=== PATIENT | female | born 1990 | race Caucasian/White ===

== ENCOUNTER 2024-06-21 12:30 | Outpatient (AMB) | payer OTHER, SELFPAY ==
--- NOTE | 2024-06-21 12:32 | MHC.OFFVIS ---
Vital Signs 06/21/24 12:38 Height 5 ft 1.46 in Weight 169 lb 5.04 oz BMI 31.5 BP 130/80 Blood Pressure Location Lt brachial Position Sitting Pulse 78 Pulse Source Pulse Oximeter Pulse Oximetry (%) 98 Oxygen Delivery Method Room Air Intake Visit Reasons: lupus Intake Note: Pt is here today for a follow up for lupus Accompanied by: Self / Same As Patient Allergies No Known Allergies Allergy (Verified 06/21/24 12:39) Medication List - Last Reconciled 06/21/24 by Vadim Serrano MD acetaminophen (Tylenol Extra Strength) 500 mg PO Q6H PRN albuterol sulfate 90 mcg/actuation 2 puffs inhalation Q6H PRN clindamycin phos-skin clnsr 19 1 % apply both twice daily: use CLEANSER; rinse, then apply CLINDAMYCIN to affected area(s) as directed topical ferrous sulfate mg PO fluticasone propionate 110 mcg/actuation 1 puff inhalation BID folic acid 1 mg PO DAILY gabapentin 300 mg PO BID hydroxychloroquine 200 mg PO DAILY lamotrigine 200 mg PO DAILY methotrexate sodium 20 mg PO QWEEK red beet mg PO HPI HPI lupus: Details: SHe received prednisone course 3 weeks from PCP, which relieved pain. Increase joint pain and stiffness since being off of DMARD therapy. Raynauds is active daily. She is sleeping more due to joint pain. +flare +Pleurisy Increase frequency. Denies dysuria. +chills and hotflashes. PFS Medical History (Updated 06/21/24 @ 13:13 by Vadim Serrano MD) Hidradenitis suppurativa Rheumatoid arthritis Depression IBS (irritable bowel syndrome) Asthma Lupus (systemic lupus erythematosus) Raynaud's syndrome Fibromyalgia Arthralgia of multiple sites Hand joint pain Surgical History H/O tubal ligation Hx of cholecystectomy Review of Systems Const All systems reviewed & are unremarkable except as noted in HPI and below Physical Exam Vital Signs: Last Vital Signs Pulse 78 06/21/24 12:38 BP 130/80 06/21/24 12:38 Pulse Ox 98 06/21/24 12:38 Oxygen Delivery Method Room Air 06/21/24 12:38 BMI result Body Mass Index 31.5 Const Other: General: Comfortable CVS: RRR Respiratory: clear to auscultation bilaterally. Good respiratory effort Skin: No lesions seen MSK: Tender bilateral MCPs, DIPJ, wrists, elbows, shoulders, bilateral knees, ankles, MTPs. She has synovitis of right knee. Normal range of motion of upper extremity but with pain. Normal range of motion of lower extremity but with pain. Assessment & Plan Assessment & Plan (1) Lupus (systemic lupus erythematosus): Comment: Relapsed off of hydroxychloroquine and methotrexate. Rheumatology history: Diagnosis of systemic lupus erythematosus manifesting with polyarthritis, malar rash, alopecia and Raynaud's syndrome. Code(s): M32.9 - Systemic lupus erythematosus, unspecified Category: Medical Qualifiers: Systemic lupus erythematosus type: unspecified Systemic lupus erythematosus organ involvement: unspecified Qualified Code(s): M32.9 - Systemic lupus erythematosus, unspecified Plan: Labs for disease and drug monitoring ordered I am requesting baseline eye exam for hydroxychloroquine surveillance eye patient had done in 2022 After lab results are back I will send prescription for hydroxychloroquine 300 mg daily, methotrexate 20 mg once weekly and folic acid 1 mg daily Return to clinic in 3 months (2) Raynaud's syndrome: Comment: Active despite conservative management. She felt improvement in symptoms with prednisone course. Code(s): I73.00 - Raynaud's syndrome without gangrene Category: Medical Qualifiers: Raynaud?s-associated gangrene presence: without gangrene Qualified Code(s): I73.00 - Raynaud's syndrome without gangrene Plan: We discussed conservative management If symptoms do not improve, I will consider starting amlodipine Return to clinic in 3 months or sooner if needed Orders: Orders Complete Blood Count Auto Diff Today Z79.60 - half-way (current) use of unspecified immunomodulators and immunosuppressants Creatinine Today Z79.60 - intermodal truck driver (current) use of unspecified immunomodulators and immunosuppressants IRMA Reflex Titer and Pattern Today I73.00 - Raynaud's syndrome without gangrene, M32.9 - Systemic lupus erythematosus, unspecified Anti DNA DS Antibody Today M32.9 - Systemic lupus erythematosus, unspecified Sm Sm/GEOTHERMAL HEAT PUMP MACHINIST Antibodies Today M32.9 - Systemic lupus erythematosus, unspecified Protein Creatinine Ratio, Ur Today M32.9 - Systemic lupus erythematosus, unspecified Complement C4 Today M32.9 - Systemic lupus erythematosus, unspecified Alanine Aminotransferase Today Z79.60 - half-way (current) use of unspecified immunomodulators and immunosuppressants Aspartate Amino Transferase Today Z79.60 - intermodal truck driver (current) use of unspecified immunomodulators and immunosuppressants Erythrocyte Sedimentation Rate Today Z79.899 - Other residential (current) drug therapy C Reactive Protein Today Z79.899 - Other long term care social worker (current) drug therapy UA w Microscopic Today M32.9 - Systemic lupus erythematosus, unspecified Protein Electrophoresis,Ran Ur Today M32.9 - Systemic lupus erythematosus, unspecified Complement C3 Today M32.9 - Systemic lupus erythematosus, unspecified T Spot TB Today M32.9 - Systemic lupus erythematosus, unspecified Hepatitis B,C Profile Today M32.9 - Systemic lupus erythematosus, unspecified Urine Culture Today M32.9 - Systemic lupus erythematosus, unspecified Medications: New prednisone Take 4 tablets daily 5 days, 3 tablets daily 5 days, 2 tablets daily 5 days, 1 tablet daily 5 days then stop. Take prednisone with food. 5 mg PO DIRECTED 50 tabs 0RF Coding Level of Care Code Est Pt Level 4 (78701) Complex EM visit Add On G2211 Diagnoses Systemic lupus erythematosus, unspecified SLE type, unspecified organ involvement status M32.9 Systemic lupus erythematosus type: unspecified Systemic lupus erythematosus organ involvement: unspecified Raynaud's disease without gangrene I73.00 Raynaud?s-associated gangrene presence: without gangrene
[2024-06-21 12:38] VITALS: BP 130/80; PULSE 78; O2SAT 98; BMI 31.5
--- OUTSIDE RECORDS SUMMARY | 2024-06-21 14:53 | XMS_ITS | Clinical Summary ---
Author Organization [employer] [facility] it Address [address] [place] [address] Care Team Providers Care Robotics Application Engineer Name Role Phone Javier Noland MD Primary Care Provider [phone] Surgical History Surgery Date Site/Laterality Comments SECTION 01/08/09 PROCEDURE: HISTORICAL DELIVERY Family History Medical History Relation Name Comments Hypertension Brother 1 Diabetes Maternal Grandfather Coronary artery disease Paternal Grandfather Other cancer Neg Hx Relation Name Status Comments Brother 1 Brother 2 Maternal Grandfather Paternal Grandfather Social History Tobacco Use Types Packs/Day Years Used Date Smoking Tobacco: Former Alcohol Use Standard Drinks/Week Comments No 0 (1 standard drink = 0.6 oz pur e alcohol) Comments Unknown Sex and Gender Information Value Date Recorded Sex Assigned at Not on file Legal Sex Female 4:33 AM EST Gender Identity Not on file Sexual Orientation Not on file Obstetrics History Plan of Treatment Health Maintenance Due Date Last Done Comments Cervical Cancer Screening: Pap Smear 07/10/2012 DTaP,Tdap,and Td Vaccines (7 - Td or Tdap) 05/16/2022 05/16/2012, 09/07/2007, 05/19/2004, Additional history exists COVID-19 Vaccine ( season) 2023 Influenza Vaccine (#1) 2023 05/16/2012, 2008 HIB Vaccines Completed 11/08/1992 MMR Vaccines Completed 11/14/1997, 10/11/1992 IPV Vaccines Completed 02/15/1998, 11/03, 01/30/1993, Additional history exists Hepatitis B Vaccines Completed 03/06/2005, 01/03/2001, 02/15/1998 Varicella Vaccines Aged Out 09/18/2005 No longer eligible based on patient's age to complete this topic Meningococcal ACWY Vaccine Completed 09/07/2007 HPV Vaccines Completed 06/07/2009, 03/05, 09/07/2007 Hepatitis A Vaccines Aged Out No long er eligible based on patient's age to complete this topic Meningococcal B Vacine Aged Out No lo nger eligible based on patient's age to complete this topic Pneumococcal Vaccine: Pediatrics (0 to 5 Years) and At-Risk Patients (6 to 64 Years) Aged Out No longer eligible based on patient's age to complete this topic RSV Immunization Patients Under 20 months Aged Out No longer eligible based on patient's age to complete this topic Care Teams Robotics Application Engineer Relationship Specialty Start Date End Date Javier Noland MD [address] [place] [address] PCP - General 08/14/14
== END 2024-06-21 13:11 | disposition home or self-care (01) ==
LOC: HO.RHES 12:30
PROVIDERS: Visit Provider Internal Medicine Rheumatology
DX: M32.9 Systemic lupus erythematosus, unspecified (principal); I73.00 Raynaud's syndrome without gangrene
CPT/HCPCS: 99214; G2211

== ENCOUNTER 2024-06-21 12:30 | Outpatient (REF) | payer OTHER, SELFPAY ==
[2024-06-21 18:11] LABS: MANUAL DIFF FLAG NO
[2024-06-21 18:24] LABS: Appearance Urine Clear; Color Urine Yellow; Glucose Urine UA Negative (Negative); Leukocyte Esterase Urine Moderate (2+) (Negative); Nitrite Urine Negative (Negative); PH 7.5 (5.0-9.0); UMIC TRIGGER UA YES; Urine Blood Negative (Negative); Urine Ketones Negative (Negative); Urine Protein Negative (Neg-Trace)
[2024-06-21 18:27] LABS: Basophils Percent Auto 0.5 % (0-2); Eosinophils Absolute Auto 0.1 X10*3/uL (0.0-0.4); Hematocrit 38.8 % (37.0-47.0); Hemoglobin 12.7 g/dl (12.0-16.0); Imm Gran Abs Auto 0.03 X10*3/uL (0.00-0.03); Imm Gran Pct Auto 0.5 % (0.0-0.4); Lymphocytes Absolute Auto 1.6 X10*3/uL (1.2-4.9); Mean Corpuscular HGB Conc 32.7 g/dl (31.0-35.0); Mean Corpuscular Hemoglobin 30.3 pg (27.0-33.0); Mean Corpuscular Volume 92.6 fL (80.0-98.0); Mean Platelet Volume 9.4 fL (9.4-12.3); Monocytes Absolute Auto 0.4 X10*3/uL (0.1-1.2); Monocytes Percent Auto 6.1 % (2-11); Neutrophils Absolute Auto 3.7 x10*3/uL (2.0-8.3); Neutrophils Percent Auto 63.9 % (45-73); Platelet Count 381 X10*3/uL (160-400); Red Blood Count 4.19 X10*6/uL (4.20-5.50); Red Cell Distribution Width 15.8 % (11.0-16.0); White Blood Count 5.7 X10*3/uL (4.8-10.8)
[2024-06-21 18:31] LABS: Bacteria Urine Trace (None Seen); Hyaline Casts Urine 0-2 /LPF (0-2); RBC Urine 0-2 /HPF (0-2)
[2024-06-21 18:38] LABS: Alanine Aminotransferase 16 U/L (0-31); Aspartate Amino Transferase 20 U/L (5-31); C Reactive Protein < 0.10 mg/dL (< or = 0.50); Estimated Glomerular Filt Rate > 60
[2024-06-21 19:05] LABS: Creatinine Urine 117.05 mg/dL; Total Protein Urine Random < 7 mg/dL (<12)
[2024-06-21 19:59] LABS: Erythrocyte Sedimentation Rate 12 MM/HR (0-20)
[2024-06-22 08:23] LABS: HBS Num1 253.64 mIU/mL (0-7.99); HBc Num1 0.13 S/CO (0.00-0.79); HBsAGNum1 0.35 S/CO (0.00-0.99); Hepatitis B Core Antibody Nonreactive (Nonreactive); Hepatitis B Surface Antigen Negative (Negative); ~HepC Num1 0.12 S/CO (0.00-0.79); ~Hepatitis B Surface Antibody REACTIVE (Nonreactive); ~Hepatitis C Antibody Nonreactive (Nonreactive)
[2024-06-22 16:32] LABS: Complement C3 125 mg/dL (83-193)
[2024-06-22 21:18] LABS: Anti DNA DS Antibody <1 IU/mL; SM/Ribonucleoprotein Ab <1.0 NEG AI (<1.0 NEG); Smith Protein <1.0 NEG AI (<1.0 NEG)
[2024-06-23 14:53] LABS: Anti Nuclear Antibody Screen NEGATIVE (NEGATIVE)
[2024-06-24 00:23] LABS: TS Negative Control Passed; TS Panel A 0; TS Panel B 0; TS Positive Control Passed; TSpotTB Negative (Negative)
[2024-06-26 09:59] LABS: PEU-Protein Creat Ratio Rand 0.095 (0.024-0.184); PEU-Rand. Prot/Creat Ratio 95 mg/g creat (24-184); PEU-Random Ur. Gamma Globulin 0 %; PEU-Random Urine A1 Globulin 0 %; PEU-Random Urine A2 Globulin 0 %; PEU-Random Urine Albumin 100 %; PEU-Random Urine Beta Globulin 0 %; PEU-Random Urine Creatinine 116 mg/dL (20-275); PEU-Random Urine Protein 11 mg/dL (5-24)
== END 2024-06-21 12:31 | disposition home or self-care (01) ==
LOC: HO.HKASLDS 12:30
PROVIDERS: Visit Provider Internal Medicine Rheumatology
DX: M32.9 Systemic lupus erythematosus, unspecified (principal); I73.00 Raynaud's syndrome without gangrene; Z79.60 Long term (current) use of unspecified immunomodulators and immunosuppressants; Z79.899 Other long term (current) drug therapy
CPT/HCPCS: 81001; 82565; 82570; 84156; 84166; 84450; 84460; 85025; 85652; 86038; 86140; 86160; 86225; 86235; 86481; 86704; 86706; 86803; 87086; 87340; 99212

== ENCOUNTER 2024-09-21 12:42 | Outpatient (AMB) | payer OTHER, SELFPAY ==
--- NOTE | 2024-09-21 12:44 | A.OFFVIS_ITS ---
Vital Signs 09/21/24 12:51 Height 5 ft 1.46 in Weight 165 lb 4 oz BMI 30.8 BP 112/62 Blood Pressure Location Lt brachial Position Sitting Pulse 63 Pulse Source Pulse Oximeter Pulse Oximetry (%) 99 Oxygen Delivery Method Room Air Intake Visit Reasons: 3 Months Intake Note: Patient presents for 3 months follow up. Allergies No Known Allergies Allergy (Verified 09/21/24 12:47) Medication List - Last Reconciled 09/21/24 by Vadim Serrano MD acetaminophen (Tylenol Extra Strength) 500 mg PO Q6H PRN albuterol sulfate 90 mcg/actuation 2 puffs inhalation Q6H PRN clindamycin phos-skin clnsr 19 1 % apply both twice daily: use CLEANSER; rinse, then apply CLINDAMYCIN to affected area(s) as directed topical ferrous sulfate mg PO fluticasone propionate 110 mcg/actuation 1 puff inhalation BID folic acid 1 mg PO DAILY folic acid 1 mg PO DAILY hydroxychloroquine 300 mg (1.5 x 200 mg) PO DAILY 90 days lamotrigine 200 mg PO DAILY methotrexate sodium 20 mg PO QWEEK methotrexate sodium 20 mg (8 x 2.5 mg) PO QWEEK 12 weeks prednisone 5 mg PO DIRECTED pregabalin 200 mg PO BID red beet mg PO HPI HPI 3 Months: Details: PCP is concerned patient has EDS with hypermobility and POTs. She has improved joint pain since being on HCQ and MTX. COnstant joint pain. Hands and feet are swollen. Neck is warm. Raynauds is active in hands and feet. [facility] Medical History (Updated 09/21/24 @ 13:20 by Vadim Serrano MD) Hidradenitis suppurativa Rheumatoid arthritis Depression IBS (irritable bowel syndrome) Asthma Lupus (systemic lupus erythematosus) Raynaud's syndrome Fibromyalgia Arthralgia of multiple sites Hand joint pain Surgical History H/O tubal ligation Hx of cholecystectomy Social History Household Members: Family Housing: Apartment Alcohol intake: former Patient Tobacco Use Status: Former Tobacco user Years Smoked: 8 Physical Exam Const Other: General: Comfortable CVS: RRR Respiratory: clear to auscultation bilaterally. Good respiratory effort Skin: No lesions seen MSK: no tender joints. No synovitis. Normal range of motion of upper extremity but with pain. Normal range of motion of lower extremity but with pain. beighton score: ?Passive dorsiflexion and hyperextension of the fifth MCP joint beyond 90? 1 1 2. Passive apposition of the thumb to the flexor aspect of t he forearm 1 1 3. Passive hyperextension of the elbow b eyond 10? 0 0 4. Passive hyperextension of the knee beyond 10? 1 1 5. Active forward flexion of the trunk w ith the knees fully extended so that the palms of the hands rest flat on the floor 1 1 TOTAL 8 Assessment & Plan Assessment & Plan (1) Lupus (systemic lupus erythematosus): Comment: Relapsed off of hydroxychloroquine and methotrexate. Inflammatory arthritis is controlled since being back on treatment. Rheumatology history: Diagnosis of systemic lupus erythematosus manifesting with polyarthritis, malar rash, alopecia and Raynaud's syndrome. Raynaud's syndrome onset age 20s. Relapsed off of hydroxychloroquine and methotrexate 2024 with inflammatory arthritis. Code(s): M32.9 - Systemic lupus erythematosus, unspecified Category: Medical Qualifiers: Systemic lupus erythematosus type: unspecified Systemic lupus ruba thematosus organ involvement: unspecified Qualified Code(s): M32.9 - Systemic lupus erythematosus, unspecified Plan: Labs for disease and drug monitoring ordered I am requesting baseline eye exam for hydroxychloroquine surveillance eye patient had done in 2022 x2 request Continue hydroxychloroquine 300 mg daily, methotrexate 20 mg once weekly and folic acid 1 mg daily Return to clinic in 3 months (2) Raynaud's syndrome: Comment: Active despite conservative management. Normotensive. Code(s): I73.00 - Raynaud's syndrome without gangrene Category: Medical Qualifiers: Raynaud?s-associated gangrene presence: without gangrene Qualified Code(s): I73.00 - Raynaud's syndrome without gangrene Plan: Start amlodipine 2.5 mg daily Nurse visit in 1 month for BP check Return to clinic in 3 months or sooner if needed (3) Benign hypermobility syndrome: Comment: Discussed new diagnosis and management. She had mitral valve regurgitation in setting of cardiomyopathy after delivery of her daughter. She does not have any other clinical signs or symptoms suggestive of more serious form of EDS. At this time there is no genetic testing for benign hypermobility syndrome. Physical rehabilitation is haq for strengthening joints and improving arthralgias. Code(s): M35.7 - Hypermobility syndrome Category: Medical Plan: PT ordered for upper extremity and lower extremity strengthening Okay to use Tylenol or NSAIDs prn joint pain Orders: Orders Complete Blood Count Man Dif Today M32.9 - Systemic lupus erythematosus, unspecified Erythrocyte Sedimentation Rate Today M32.9 - Systemic lupus erythematosus, unspecified Anti DNA DS Antibody Today M32.9 - Systemic lupus erythematosus, unspecified Alanine Aminotransferase Today M32.9 - Systemic lupus erythematosus, unspecified Aspartate Amino Transferase Today M32.9 - Systemic lupus erythematosus, unspecified Creatinine Today M32.9 - Systemic lupus erythematosus, unspecified C Reactive Protein Today M32.9 - Systemic lupus erythematosus, unspecified UA w Microscopic Today M32.9 - Systemic lupus erythematosus, unspecified Protein Creatinine Ratio, Ur Today M32.9 - Systemic lupus erythematosus, unspecified Complement C4 Today M32.9 - Systemic lupus erythematosus, unspecified Complement C3 Today M32.9 - Systemic lupus erythematosus, unspecified PT Evaluation and Treatment Today M35.7 - Hypermobility syndrome Medications: Refilled methotrexate sodium 20 mg (8 x 2.5 mg) PO QWEEK 96 tabs 0RF 12 weeks hydroxychloroquine 1.5 tabs daily 300 mg (1.5 x 200 mg) PO DAILY 135 tabs 0RF 90 days Coding Level of Care Code Est Pt Level 4 (38286) Complex EM visit Add On G2211 Diagnoses Systemic lupus erythematosus, unspecified SLE type, unspecified organ involvement status M32.9 Systemic lupus erythematosus type: unspecified Systemic lupus erythematosus organ involvement: unspecified Raynaud's disease without gangrene I73.00 Raynaud?s-associated gangrene presence: without gangrene Benign hypermobility syndrome M35.7
[2024-09-21 12:51] VITALS: BP 112/62; PULSE 63; O2SAT 99; BMI 30.8
--- OUTSIDE RECORDS SUMMARY | 2024-09-21 13:45 | XMS_ITS | Clinical Summary ---
Author Organization [facility] it Address [address] [place] [address] Care Team Providers Care Steam Fitter Supervisor Maintenance Name Role Phone Javier Noland MD Primary Care Provider [phone] Surgical History Surgery Date Site/Laterality Comments SECTION [...] COVID-19 Vaccine ( season) 2023 Influenza Vaccine (Season Ended) 2024 05/16/2012, 02/22/2009 HIB Vaccines Completed 11/08/1992 MMR Vaccines Completed [...] age to complete this topic Meningococcal B Vaccine Aged Out No l onger eligible based on patient's age to complete this topic Pneumococcal Vaccine: Pediatrics (0 to 5 Years) and At-Risk Patients (6 to 64 Years) Aged Out No longer eligible based on patient's age to complete this topic RSV Immunization Patients Under 20 months Aged Out No longer eligible based on patient's age to complete this topic Care Teams Steam Fitter Supervisor Maintenance Relationship Specialty Start Date End Date Javier Noland MD [address] [place] [address] PCP - General 08/14/14
== END 2024-09-21 13:15 | disposition home or self-care (01) ==
PROVIDERS: PCP Pediatrics; Visit Provider Internal Medicine Rheumatology
DX: M32.9 Systemic lupus erythematosus, unspecified (principal); I73.00 Raynaud's syndrome without gangrene; M35.7 Hypermobility syndrome
CPT/HCPCS: 99214; G2211

== ENCOUNTER 2024-09-21 12:42 | Outpatient (REF) | payer OTHER, SELFPAY ==
[2024-09-21 17:42] LABS: Appearance Urine Clear; Baso%MD 0.7 %; Color Urine Yellow; Eos%MD 2.6 %; Glucose Urine UA Negative (Negative); Hematocrit 35.9 % (37.0-47.0); Hemoglobin 11.6 g/dl (12.0-16.0); IG%MD 0.3 %; Leukocyte Esterase Urine Trace (Negative); Mean Corpuscular HGB Conc 32.3 g/dl (31.0-35.0); Mean Corpuscular Hemoglobin 30.7 pg (27.0-33.0); Mean Platelet Volume 9.6 fL (9.4-12.3); Mono%MD 5.2 %; Neut%MD 59.2 %; Nitrite Urine Negative (Negative); Platelet Count 298 X10*3/uL (160-400); Red Blood Count 3.78 X10*6/uL (4.20-5.50); Red Cell Distribution Width 14.4 % (11.0-16.0); UMIC TRIGGER UA YES; Urine Blood Trace (Negative); Urine Ketones Negative (Negative); Urine Protein Negative (Neg-Trace); White Blood Count 6.9 X10*3/uL (4.8-10.8)
[2024-09-21 17:48] LABS: Bacteria Urine None Seen (None Seen); Hyaline Casts Urine 0-2 /LPF (0-2); RBC Urine 0-2 /HPF (0-2); Squamous Epithelial Cell Urine 0-2 /HPF (0-2); WBC Urine 0-5 /HPF (0-5)
[2024-09-21 18:03] LABS: Alanine Aminotransferase 11 U/L (0-31); Aspartate Amino Transferase 18 U/L (5-31); C Reactive Protein < 0.04 mg/dL (< or = 0.50); Estimated Glomerular Filt Rate > 60
[2024-09-21 18:06] LABS: Creatinine Urine 45.97 mg/dL; Total Protein Urine Random < 7 mg/dL (<12)
[2024-09-21 18:30] LABS: Erythrocyte Sedimentation Rate 7 MM/HR (0-20)
[2024-09-21 22:21] LABS: Basophils Abs Manual 0.1 X10*3/uL (0.0-0.2); Basophils Percent Manual 1 % (0-2); Eosinophils Absolute Manual 0.2 X10*3/uL (0.0-0.4); Eosinophils Percent Manual 3 % (0-4); Lymphocytes Absolute Manual 1.7 X10*3/uL (1.2-4.9); Lymphocytes Percent Manual 24 % (20-40); Monocytes Absolute Manual 0.2 X10*3/uL (0.1-1.2); Monocytes Percent Manual 3 % (2-11); Neutrophils Percent Manual 69 % (45-73)
[2024-09-21 22:23] LABS: Band Neutrophils Percent 0 % (3-5); Neutrophils Absolute Manual 4.8 X10*3/uL (2.0-8.3); Platelet Estimate NORMAL (NORMAL); Platelet Morphology Comment NORMAL; RBC Morphology NORMAL
[2024-09-22 17:04] LABS: Complement C3 113 mg/dL (83-193)
[2024-09-22 20:49] LABS: Anti DNA DS Antibody <1 IU/mL
== END 2024-09-21 12:43 | disposition home or self-care (01) ==
LOC: HO.HKASLDS 12:42
PROVIDERS: Visit Provider Internal Medicine Rheumatology
DX: M32.9 Systemic lupus erythematosus, unspecified (principal); I73.00 Raynaud's syndrome without gangrene; M35.7 Hypermobility syndrome
CPT/HCPCS: 36415; 81001; 82565; 82570; 84156; 84450; 84460; 85007; 85027; 85652; 86140; 86160; 86225; 99212

== ENCOUNTER 2024-09-27 07:49 | Outpatient (RCR) | payer OTHER, SELFPAY ==
--- NOTE | 2024-09-27 10:47 | MHC.OT.EP ---
[address] [phone] Occupational Therapy Plan of Care Patient Name: Tayler Monsalve Date of Evaluation: 09/27/24 Diagnosis: Bilateral hand pain Yuki-Danlos syndromes (EDS) Pain Location: Pain in bilateral hands/wrists Currently: 5/10 Worst: 8/10 Pain Score: 5 Pain Scale Used: Numeric (0 - 10) Aggravating Factors: Carrying, forceful grasp, extreme heat or cold Alleviating Factors: None reported Assessment: Pt is a 34 y/o female referred to OT with EDS with hypermobility and hand pain. Pt reports long standing history of multi-joint pain and hypermobility although she believes it has been worsening over the past year. She is having difficulty with meal prep, cutting food, frequently drops items, and demonstrates difficulty with fine motor tasks. She is limited by wrist pain and overall fatigue. She experiences constant neck pain, describes her head as 'feeling heavy', and reports overall fatigue impacting function. Tayler scored 70.5% on the Quick DASH, indicating significant UE disability. White Kid Buffer strength is below average (40# on the right and 35# on the left). Beighton score is 8/9, consistent with generalized hypermobility. She also demonstrates decreased FM control and proprioceptive awareness (recent falls). Pt would benefit from skilled OT services for symptom management and improvement in ADL's/IADL's. Frequency and Duration: The patient will be seen 2x/wk for 6 weeks Short Term Goals: Pt will demo joint protection techniques during ADL's with verbal cues Perform 10 min of therex (cervical stabilization/isometric exercises) with minimal fatigue Identify energy takers/givers and pacing techniques with support Halfway Goals: IND with jiont protection and EC strategies Improve bilateral vermin exterminator strength by 10# each Improve R hand FMC to increase ease with dressing as evidenced by >6 sec improvement on FDT IND with stabilizing/isometric exercise routine to improve overall strength and endurance for fxnal tasks Treatment Plan: Therapeutic Exercise Therapeutic Activity Home Exercise Program Patient Education ADL Training Soft Tissue Mobilization Electronically Signed By: Mandi Donaldson MS OTR/L Please Sign and return to therapist. Thank you once again for your referral.
--- NOTE | 2024-11-01 09:21 | MHC.OT.DC ---
[address] [phone] F: [phone] Occupational Therapy Discharge Note Patient Name: Tayler Monsalve Provider: Vadim Serrano Diagnosis: Bilateral hand pain Yuki-Danlos syndromes (EDS) Date of Evaluation: 09/27/24 Date of Discharge: 10/22 (last seen 09/27) Treatments to Date: 1 Discharge Status: Visit Non-compliance Discharge Summary: Pt is a 34 y/o female referred to OT with EDS with hypermobility and hand pain. Pt reports long standing history of multi-joint pain and hypermobility although she believes it has been worsening over the past year. She is having difficulty with meal prep, cutting food, frequently drops items, and demonstrates difficulty with fine motor tasks. She is limited by wrist pain and overall fatigue. She experiences constant neck pain, describes her head as 'feeling heavy', and reports overall fatigue impacting function. Tayler scored 70.5% on the Quick DASH, indicating significant UE disability. Sheep And Wheat Farmer strength is below average (40# on the right and 35# on the left). Beighton score is 8/9, consistent with generalized hypermobility. She also demonstrates decreased FM control and proprioceptive awareness (recent falls). Pt would benefit from skilled OT services for symptom management and improvement in ADL's/IADL's. 11/01 - Pt last seen for initial eval on 09/27 and failied to follow up with future appointments. At this time, pt. is being discharged from OT services. Electronically Signed By: Mandi Donaldson MS OTR/L Reviewed/agree with student documentation: Therapist: Please Sign and return to therapist, thank you for your referral.
== END 2024-11-01 09:22 | disposition home or self-care (01) ==
LOC: HO.OTS 07:49
PROVIDERS: Visit Provider Internal Medicine Rheumatology
DX: M79.641 Pain in right hand (principal); M79.642 Pain in left hand
CPT/HCPCS: 97110; 97165; 97166

== ENCOUNTER 2025-01-10 07:56 | Outpatient (REF) | payer OTHER, SELFPAY ==
[2025-01-10 13:25] LABS: MANUAL DIFF FLAG NO
[2025-01-10 13:37] LABS: Hematocrit 37.4 % (37.0-47.0); Hemoglobin 12.0 g/dl (12.0-16.0); Imm Gran Abs Auto 0.02 X10*3/uL (0.00-0.03); Imm Gran Pct Auto 0.4 % (0.0-0.4); Lymphocytes Absolute Auto 1.7 X10*3/uL (1.2-4.9); Mean Corpuscular HGB Conc 32.1 g/dl (31.0-35.0); Mean Corpuscular Hemoglobin 31.1 pg (27.0-33.0); Mean Corpuscular Volume 96.9 fL (80.0-98.0); NRBC Abs Auto 0.000 X10*3/uL (0.0-0.012); NRBC Pct Auto 0.0 /100WBC (0.0-0.2); Platelet Count 320 X10*3/uL (160-400); Red Blood Count 3.86 X10*6/uL (4.20-5.50); White Blood Count 5.7 X10*3/uL (4.8-10.8)
[2025-01-10 13:43] LABS: Appearance Urine Clear; Glucose Urine UA Negative (Negative); PH 6.5 (5.0-9.0); Specific Gravity - Urine 1.010 (1.005-1.025)
[2025-01-10 13:59] LABS: Alanine Aminotransferase 12 U/L (0-31); Aspartate Amino Transferase 15 U/L (5-31); Estimated Glomerular Filt Rate > 60
[2025-01-10 14:44] LABS: Total Protein Urine Random < 7 mg/dL (<12)
== END 2025-01-10 07:57 | disposition home or self-care (01) ==
LOC: HO.HKASLDS 07:56
PROVIDERS: PCP Pediatrics; Visit Provider Internal Medicine Rheumatology
DX: Z51.81 Encounter for therapeutic drug level monitoring (principal); M32.9 Systemic lupus erythematosus, unspecified; I73.00 Raynaud's syndrome without gangrene; M35.7 Hypermobility syndrome; Z79.631 Long term (current) use of antimetabolite agent; Z79.899 Other long term (current) drug therapy
CPT/HCPCS: 36415; 81001; 82565; 82570; 84156; 84450; 84460; 85025; 85652; 86140; 86160; 86225; 99212

== ENCOUNTER 2025-01-10 07:56 | Outpatient (AMB) | payer OTHER, SELFPAY ==
--- NOTE | 2025-01-10 07:57 | A.OFFVIS_ITS ---
Vital Signs 01/10/25 07:58 Height 5 ft 1.46 in Weight 158 lb 1.143 oz BMI 29.4 BP 90/70 Blood Pressure Location Rt brachial Position Sitting Pulse 60 Pulse Source Pulse Oximeter Pulse Oximetry (%) 99 Intake Visit Reasons: F/U Intake Note: Pt is here today for a follow up for lupus Accompanied by: Daughter Allergies No Known Allergies Allergy (Verified 01/10/25 08:02) HPI HPI F/U: Details: She had 3 falls. Some of them were associated with dizziness. Night sweats in the last week. On florinef for tx orthostatic hypotension recently dx in the last month. 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 Hands are painful. She had a nasal ulcers assocaited with URI, which has resolved. Raynaud's is active about 3 times a day. She uses gloves. It lasts a couple of minutes. Fingertips turn white and they are uncomfortable. She has blood vessels that are popping in the palmar aspect of her hands. She will have pain in the site when it happens. She will be doing PT at [facility] with her daughter. [facility] Medical History (Updated 01/10/25 @ 08:34 by Vadim Serrano MD) Orthostatic hypertension POTS (postural orthostatic tachycardia syndrome) Hidradenitis suppurativa Rheumatoid arthritis Depression IBS (irritable bowel syndrome) Asthma Lupus (systemic lupus erythematosus) Raynaud's syndrome Fibromyalgia Arthralgia of multiple sites Hand joint pain Surgical History H/O tubal ligation Hx of cholecystectomy Social History Household Members: Family Housing: Apartment Alcohol intake: former Patient Tobacco Use Status: Former Tobacco user Years Smoked: 8 Physical Exam Vital Signs: Last Vital Signs Pulse 60 01/10/25 07:58 BP 90/70 01/10/25 07:58 Pulse Ox 99 01/10/25 07:58 BMI result Body Mass Index 29.4 Const Other: General: Comfortable CVS: RRR Respiratory: clear to auscultation bilaterally. Good respiratory effort Skin: No lesions seen MSK: Tender right 3rd MCP and PIP. Tender bilateral knees No synovitis. Normal range of motion of upper extremity but with pain. Normal range of motion of lower extremities Assessment & Plan Assessment & Plan (1) Lupus (systemic lupus erythematosus): Comment: She has increase joint pain with the weather change. No synovitis on exam. Rheumatology history: Diagnosis of systemic lupus erythematosus manifesting with polyarthritis, malar rash, alopecia and Raynaud's syndrome. Raynaud's syndrome onset age 20s. Relapsed off of hydroxychloroquine and methotrexate 2024 with inflammatory arthritis. Code(s): M32.9 - Systemic lupus erythematosus, unspecified Category: Medical Qualifiers: Systemic lupus erythematosus organ involvement: unspecified Systemic lupus erythematosus type: unspecified Qualified Code(s): M32.9 - Systemic lupus erythematosus, unspecified Plan: Labs for disease and drug monitoring ordered I am requesting baseline eye exam for hydroxychloroquine surveillance eye patient had done in 2022 x3 request. She will schedule another eye exam for HCQ surveillance Continue hydroxychloroquine 300 mg daily, methotrexate 20 mg once weekly and folic acid 1 mg daily Return to clinic in 3 months (2) Raynaud's syndrome: Comment: Active despite conservative management. She is hypotensive. BP today 90/70. She was recently diagnosed with orthostatic hypotension and is on Florinef. Contraindication to calcium channel sri. We discussed next steps with treatment with sildenafil. Code(s): I73.00 - Raynaud's syndrome without gangrene Category: Medical Qualifiers: Raynaud?s-associated gangrene presence: without gangrene Qualified Code(s): I73.00 - Raynaud's syndrome without gangrene Plan: PA sildenafil 20 mg b.i.d. Encouraged hydration in setting of orthostatic hypotension diagnosis Return to clinic in 3 months or sooner if needed (3) Benign hypermobility syndrome: Comment: She started PT. Code(s): M35.7 - Hypermobility syndrome Category: Medical Plan: Continue PT Okay to use Tylenol or NSAIDs prn joint pain Medications: Refilled methotrexate sodium 20 mg (8 x 2.5 mg) PO QWEEK 96 tabs 0RF 12 weeks Coding Level of Care Code Est Pt Level 4 (16210) Complex EM visit Add On G2211 Diagnoses Systemic lupus erythematosus, unspecified SLE type, unspecified organ involvement status M32.9 Systemic lupus erythematosus organ involvement: unspecified Systemic lupus erythematosus type: unspecified Raynaud's disease without gangrene I73.00 Raynaud?s-associated gangrene presence: without gangrene Benign hypermobility syndrome M35.7
[2025-01-10 07:58] VITALS: BP 90/70; PULSE 60; O2SAT 99; BMI 29.4
--- OUTSIDE RECORDS SUMMARY | 2025-01-10 08:02 | XMS_ITS | Clinical Summary ---
Author Organization [facility] it Address [address] [place] [address] Care Team Providers Care Psychiatric Nurse Name Role Phone Javier Noland MD Primary Care Provider [phone] Surgical History Surgery Date Site/Laterality Comments SECTION [...] 05/16/2022 05/16/2012, 09/07/2007, 05/19/2004, Additional history exists Depression Screening 04/05/2024 COVID-19 Vaccine ( season) 2024 Influenza Vaccine (#1) 2024 05/16/2012, 2008 RSV Immunization Adult Patients (1 - 1-dose 75+ series) 07/10/2066 HIB Vaccines Completed 11/08/1992 MMR Vaccines Completed [...] 5 Years) and At-Risk Patients (6 to 49 Years) Aged Out No longer eligible based on patient's age to complete this topic RSV Immunization Patients Under 20 months Aged Out No longer eligible based on patient's age to complete this topic Care Teams Psychiatric Nurse Relationship Specialty Start Date End Date Javier Noland MD [address] [place] [address] PCP - General 08/14/14
== END 2025-01-10 08:34 | disposition home or self-care (01) ==
LOC: HO.RHES 07:56
PROVIDERS: PCP Pediatrics; Visit Provider Internal Medicine Rheumatology
DX: M32.9 Systemic lupus erythematosus, unspecified (principal); I73.00 Raynaud's syndrome without gangrene; M35.7 Hypermobility syndrome
CPT/HCPCS: 99214; G2211